=== PATIENT | female | born 1955 | race Hispanic/Latino ===

== ENCOUNTER → 2020-03-16 | Outpatient (CLI) | payer OTHER | END | disposition home or self-care (01) | LOC: OIH 11:00 | PROVIDERS: ATTEND Internal Medicine Cardiovascular Disease | DX: Z13.6 Encounter for screening for cardiovascular disorders (principal) | CPT/HCPCS: 75571 ==

== ENCOUNTER → 2024-07-27 | Outpatient (CLI) | payer OTHER | END | disposition home or self-care (01) | LOC: RAH 10:38 | PROVIDERS: ATTEND Internal Medicine Cardiovascular Disease | DX: Z13.6 Encounter for screening for cardiovascular disorders (principal) | CPT/HCPCS: 75571 ==

== ENCOUNTER → 2024-07-27 | Outpatient (CLI) | payer OTHER | END | disposition home or self-care (01) | LOC: RAH 10:28 | PROVIDERS: ATTEND Internal Medicine | DX: M85.88 Other specified disorders of bone density and structure, other site (principal); Z78.0 Asymptomatic menopausal state | CPT/HCPCS: 77080 ==

== ENCOUNTER 2024-09-13 08:50 | Day surgery (SDC) | payer OTHER ==
[2024-09-10 14:23] VITALS: BP 141/89; PULSE 76; RESP 19; TEMP 98.1
[2024-09-10 14:31] LABS: BASOPHILS # (AUTO) 0.05 K/uL (0.00-0.20); BASOPHILS % (AUTO) 0.7 % (0.0-5.0); EOSINOPHILS # (AUTO) 0.12 K/uL (0.00-0.70); EOSINOPHILS % (AUTO) 1.6 % (0.0-8.0); HEMATOCRIT 41.9 % (36-48); IMMATURE GRANULOCYTE ABSOLUTE 0.04 K/uL (0-1); LYMPHOCYTES # (AUTO) 1.8 K/uL (1.0-4.8); LYMPHOCYTES % (AUTO) 24.2 % (21.0-51.0); MEAN CORPUSCULAR HEMOGLOBIN 27.9 pg (27.0-33.0); MEAN CORPUSCULAR VOLUME 87.1 fL (79-99); MONOCYTES # (AUTO) 0.5 K/uL (0.1-1.0); NEUTROPHILS # (AUTO) 4.8 K/uL (1.8-7.7); PLATELET COUNT (AUTO) 211 K/uL (130-400); RED BLOOD CELL COUNT(AUTO) 4.81 MIL/uL (4.00-5.50); RED CELL DISTRIBUTION WIDTH 13.7 % (11.0-15.5); WHITE BLOOD COUNT (AUTO) 7.3 K/uL (4.8-10.8)
[2024-09-10 14:45] LABS: INR 1.06 (0.85-1.15); PROTHROMBIN TIME 11.4 SEC (9.6-11.6)
[2024-09-10 14:46] LABS: PARTIAL THROMBOPLASTIN TIME 28.8 SEC (26.3-35.5)
[~2024-09-13] VITALS: Ht 157.5 cm; Wt 103.1 kg
[~2024-09-13 08:50] MED LIST: APIX5TAB PO; ATOR10 PO; FISH1CAP27 PO; LEVO112C4 PO; METO50TA18 PO; SELE200C PO; VITAMIN B12 PO
[2024-09-13 09:15] VITALS: BP 171/95; PULSE 115; RESP 17; TEMP 97.3
[2024-09-13] MEDS: 0.9%NACL 1000ML 1,000 ML IV SCH (10:08)
--- NOTE | 2024-09-13 10:32 | EKG ---
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
[2024-09-13] MEDS ORDERED: proPOFol 10 MG/ML 20ML VIAL IV ONE (10:43)
--- NOTE | 2024-09-13 10:50 | NUR ---
DR. PHAM SYNCHRONIZED CARDIOVERTED PT WITH 120 JOULES NO SUCCESS PT REMAINS IN A-FIB
--- NOTE | 2024-09-13 10:51 | NUR ---
DR. PHAM SYNCHRONIZED CARDIOVERTED PT AGAIN AT 200 JOULES PT CONTINUES TO BE IN A-FIB
--- NOTE | 2024-09-13 10:52 | NUR ---
DR. PHAM SYNCHRONIZED CARDIOVERTED PT AGAIN AT 200 JOULES, PT REMAINED IN A-FIB. AT THIS POINT DR. PHAM FEELS HE CANT DO MUCH MORE WILL SPEAK WITH PATIENTS SPOUSE ABOUT SEEING DR. RODRIGUEZ OR DR. ROSAS AT THIS POINT FOR FURTHER RATE CONTROL.
--- NOTE | 2024-09-13 10:58 | NUR ---
PT AWAKE SPEAKING WITH STAFF
[2024-09-13 11:10] VITALS: BP 124/80; PULSE 84; RESP 15; TEMP 97.4
[2024-09-13 11:25] VITALS: BP 133/80; PULSE 84; RESP 14
[2024-09-13 11:40] VITALS: BP 133/82; PULSE 84; RESP 15
[2024-09-13 11:50] VITALS: BP 142/78; PULSE 84; RESP 14
== END 2024-09-13 11:55 | disposition home or self-care (01) ==
LOC: DAH 08:50
PROVIDERS: ATTEND Internal Medicine Cardiovascular Disease
DX: I48.0 Paroxysmal atrial fibrillation (principal); E66.01 Morbid (severe) obesity due to excess calories; G47.33 Obstructive sleep apnea (adult) (pediatric); E03.9 Hypothyroidism, unspecified; I51.7 Cardiomegaly; Z68.41 Body mass index [BMI] 40.0-44.9, adult; Z90.710 Acquired absence of both cervix and uterus; Z98.890 Other specified postprocedural states; Z79.01 Long term (current) use of anticoagulants; Z79.899 Other long term (current) drug therapy
CPT/HCPCS: 80048; 85025; 85610; 85730; 36415; 92960; 93005; A4223 ×3; J7030; J2704; A4620; A4215; A4222; A4221; A4663; A4216; A4606; J3490